=== PATIENT | female | born 1995 | race African-American/Black ===

== ENCOUNTER 2017-06-09 00:25 | Emergency (ER) | payer SELFPAY ==
[~2017-06-09] VITALS: Ht 162.6 cm; Wt 90.0 kg
[2017-06-09 00:26] VITALS: BP 125/74; PULSE 76; RESP 16; TEMP 98.6; O2SAT 99
[2017-06-09] MEDS ORDERED: diphenhydrAMINE HCL 50 MG CAP PO ONE (01:15)
[2017-06-09] MEDS ORDERED: FAMOTIDINE 20 MG TAB PO ONE (01:15)
[2017-06-09] MEDS ORDERED: predniSONE 50 MG TAB PO ONE (01:15)
[2017-06-09] MEDS ORDERED: MEDR4PAK PO (01:18)
[2017-06-09] MEDS ORDERED: EPIP0.3I IM (01:19)
--- NOTE | 2017-06-09 01:19 | PD ---
HPI Chief Complaint: Allergic/Adverse Reaction Time Seen by Provider: 01:07 Travel History International Travel<30 days: No Contact w/Intl Traveler<30days: No Traveled to known affect area: No History of Present Illness HPI 21 year-old female presents to the emergency department for complaint of urticarial reaction. According the patient since she moved into her dorm over the past several weeks each night she has an acute allergic reaction with urticaria. Patient states she typically notices urticaria about her neck and face. Patient states each morning the symptoms have resolved. Patient has taken no medications. Patient is unable to identify known or precipitating allergens. No prior history of allergic reaction. Patient denies any lip tongue throat swelling or stridor hoarseness shortness of breath or wheezing. Patient also had no chest pain no near-syncope or syncope no Abdominal pain nausea vomiting or diarrhea. Patient states that tonight she did notice some slight wheezing and has prior history of asthma as a child so decided to come to the emergency room for evaluation. Patient states the wheezing has resolved. Patient states she is not aware of any new detergents linens clothing foods or obvious precipitating allergens. Patient is taking no medications prior to arrival to the emergency department did not even take Benadryl. PFSH Past Medical History Narrative Medical Negative past medical history negative surgical history no tobacco use nursing notes reviewed Medical History: Denies Significant Hx ?: Not LMP: 05/11/17 Past Surgical History Surgical History: No Previous Surgery Social History Alcohol Use: No Tobacco Use: No Substance Use: No Allergies-Medications (Allergen,Severity, Reaction): Coded Allergies: No Known Allergies (Unverified , 06/09/17) Reported Meds & Prescriptions Reported Meds & Active Scripts Active Epipen 2-Lc Inj (Epinephrine) 0.3 Mg/0.3 Ml Pfpen 0.3 Mg IM ONCE PRN Medrol Dosepak (Methylprednisolone) 4 Mg Dspk 4 Mg PO DIRECTED Per Pharmacist direction Review of Systems Except as stated in HPI: all other systems reviewed are Neg Physical Exam Narrative GENERAL: Well-developed well-nourished female in no acute distress no respiratory distress; no stridor or hoarseness. SKIN: Warm and dry. Urticaria to the left forehead; no diffuse urticarial reaction no petechia no purpura no vesicles no pustules HEAD: Normocephalic. EYES: No scleral icterus. No injection or drainage. ENT: Mucous membranes moist airway is patent no lip tongue or throat swelling NECK: Supple, trachea midline. No JVD or lymphadenopathy. CARDIOVASCULAR: Regular rate and rhythm without murmurs, gallops, or rubs. RESPIRATORY: Breath sounds equal bilaterally. No accessory muscle use. GASTROINTESTINAL: Abdomen soft, non-tender, nondistended. MUSCULOSKELETAL: No cyanosis, or edema. BACK: Nontender without obvious deformity. No CVA tenderness. Data Data Last Documented VS Vital Signs Date Time Temp Pulse Resp B/P (MAP) Pulse Ox O2 Delivery O2 Flow Rate FiO2 06/09/17 00:26 98.6 76 16 125/74 (91) 99 Room Air Orders Orders Prednisone (Deltasone) (06/09/17 01:15) Famotidine (Pepcid) (06/09/17 01:15) Diphenhydramine (Benadryl) (06/09/17 01:15) [facility] Medical Decision Making Medical Screen Exam Complete: Yes Emergency Medical Condition: Yes Medical Record Reviewed: Yes Differential Diagnosis Acute allergic reaction, idiopathic urticaria; no evidence for anaphylaxis or angioedema Narrative Course Patient has been having symptoms for several weeks and symptoms according to patient have improved this evening therefore administered prednisone Benadryl and Pepcid Patient reports she does not want any medications in the emergency department hives are resolving spontaneously will take prescriptions but does not want any medication administered while visiting in the ED. Patient is otherwise stable for outpatient management again encouraged to follow-up with director operations broadcast or primary care provider Diagnosis Primary Impression: Idiopathic urticaria Referrals: [facility] call for appointment Primary Care Physician call for appointment Patient Instructions: General Instructions Additional Instructions: Complete course of Medrol Dosepak Follow-up with [facility] or primary care provider Take Benadryl 25-50 mg as often as every 6-46 hours as needed for hives or may take Zyrtec 10 mg once daily Takes Zantac 150 twice daily for the next 7 days Return to the emergency department for any concerns or change in condition Med/Other Pt SpecificInfo: Prescription(s) given Scripts Epinephrine Inj (Epipen 2-Lc Inj) 0.3 Mg/0.3 Ml Pfpen 0.3 MG IM ONCE Y for ALLERGIC REACTION, #1 PACK 0 Refills Prov: Leonarda Almaguer MD 06/09/17 Methylprednisolone Dosepak (Medrol Dosepak) 4 Mg Dspk 4 MG PO DIRECTED, #1 DSPK 0 Refills Per Pharmacist direction Prov: Leonarda Almaguer MD 06/09/17 Disposition: 01 DISCHARGE HOME Condition: Stable Leonarda Almaguer MD Jun 09, 2017 01:19
== END 2017-06-09 01:55 | disposition home or self-care (01) ==
LOC: NEPC 00:25
DX: L50.1 Idiopathic urticaria (principal)
CPT/HCPCS: 99284